=== PATIENT | female | born 1960 ===

== ENCOUNTER 2016-05-29 07:47 | Day surgery (SDC) | payer MEDICAID ==
[2016-05-26 09:58] VITALS: BMI 43.0
[2016-05-29] MEDS ORDERED: Etomidate 20 mg/10ml Inj IV ONE (10:18)
[2016-05-29] MEDS ORDERED: Midazolam 2 MG/2 ML VIAL ONE (10:18)
[2016-05-29] MEDS ORDERED: Propofol 10 mg/ml Inj (20 ML) ONE ×2 (10:18)
[2016-05-29] MEDS ORDERED: Lactated Ringer's 1,000 ML IV SCH (10:45)
[2016-05-29 10:55] VITALS: TEMP 98
[2016-05-29 11:23] VITALS: RESP 18
[2016-05-29 14:03] VITALS: BP 143/65; PULSE 62; O2SAT 97
== END 2016-05-29 14:01 | disposition home or self-care (01) ==
LOC: C.ENDO 07:47
PROVIDERS: ATTEND Internal Medicine Gastroenterology
DX: Z08 Encounter for follow-up examination after completed treatment for malignant neoplasm (principal); Z85.038 Personal history of other malignant neoplasm of large intestine; Z90.49 Acquired absence of other specified parts of digestive tract; E11.9 Type 2 diabetes mellitus without complications; I10 Essential (primary) hypertension
CPT/HCPCS: 45378; 82948; J2250; J2704; J7120